=== PATIENT | male | born 1940 | race Caucasian/White ===

== ENCOUNTER → 2022-08-09 09:48 | Outpatient (CLI) | payer MEDICARE, SELFPAY ==
--- NOTE | ~2022-08-09 | XR_ITS ---
EXAM: XR knee RT 3V DATE: 08/09/2022 10:41 HISTORY: M25.561 - Pain in right knee . COMPARISON: None available. FINDINGS: Uncomplicated right knee total arthroplasty. Decreased mineralization. No fracture or disl ocation. No lytic or blastic lesion. Moderate quadriceps enthesopathy. Small volume joint fluid. No e rosion or periosteal change. Soft tissues within normal limits. IMPRESSION: No acute osseous finding in the right knee. No radiographic evidence of hardware-related complication. Reviewed, dictated and finalized at location K. ER HELPER IMPRESSION: No acute osseous finding in the right knee. No radiographic evidenc e of hardware-related complication.
== END ==
PROVIDERS: Visit Provider Orthopaedic Surgery
DX: M25.561 Pain in right knee (principal)
CPT/HCPCS: 73562

== ENCOUNTER 2022-10-18 09:35 | Outpatient (CLI) | payer MEDICARE, SELFPAY ==
[2022-10-18 11:10] LABS: Basophils Percent Auto 0.5 % (0.2-1.2); Eosinophils Absolute Auto 0.6 K/mm3 (0-0.3); Eosinophils Percent Auto 6.9 % (0-4.4); Hematocrit 27.3 % (42.0-52.0); Hemoglobin 8.8 g/dL (14.0-18.0); Immature Granulocyte Absolute 0.08 K/mm3 (0.00-0.031); Immature Granulocyte Percent A 0.9 % (0-0.5); Lymphocytes Absolute Auto 2.87 K/mm3 (0.9-3.2); Lymphocytes Percent Auto 32.9 % (18.3-44.2); Mean Corpuscular HGB Conc 32.2 g/dl (32-36); Mean Corpuscular Hemoglobin 31.3 pg (26-34); Mean Corpuscular Volume 97.2 fl (80-100); Mean Platelet Volume 8.3 fl (7.4-10.4); Monocytes Absolute Auto 0.5 K/mm3 (0.1-0.6); Monocytes Percent Auto 5.7 % (2.6-8.5); Neutrophils Absolute Auto 4.6 K/mm3 (1.3-6.7); Neutrophils Percent Auto 53.1 % (45.5-73.1); Platelet Count Result 157 k/mm3 (150-375); Red Blood Count 2.81 M/mm3 (4.6-6.20); Red Cell Distribution Width 14.8 % (11.5-14.5); White Blood Count 8.7 K/mm3 (4.5-10.0)
[2022-10-18 11:21] LABS: Urine Cotinine NEGATIVE
[2022-10-18 11:23] LABS: Albumin Level 4.1 g/dL (3.5-5.1); Estimated Glomerular Filt Rate 39; Glucose 104 mg/dL (65-110)
[2022-10-18 11:26] LABS: Hemoglobin A1C 5.4 % (<5.7)
[2022-10-18 11:30] LABS: Phenytoin Dilantin 24 ug/mL (10-20)
== END 2022-10-18 09:36 | disposition home or self-care (01) ==
LOC: ANHSURGERY 09:41
PROVIDERS: Anesthesiology; Visit Provider Orthopaedic Surgery
DX: M17.11 Unilateral primary osteoarthritis, right knee (principal); Z01.818 Encounter for other preprocedural examination
CPT/HCPCS: 80185; 80307; 82040; 82565; 82947; 83036; 85025; 87081

== ENCOUNTER 2023-03-16 09:42 | Outpatient (CLI) | payer MEDICARE, SELFPAY ==
[2023-03-16 10:14] LABS: Basophils Percent Auto 0.4 % (0.2-1.2); Eosinophils Absolute Auto 0.7 K/mm3 (0-0.3); Eosinophils Percent Auto 7.9 % (0-4.4); Hematocrit 33.1 % (42.0-52.0); Hemoglobin 10.5 g/dL (14.0-18.0); Immature Granulocyte Absolute 0.03 K/mm3 (0.00-0.031); Immature Granulocyte Percent A 0.3 % (0-0.5); Lymphocytes Absolute Auto 3.74 K/mm3 (0.9-3.2); Lymphocytes Percent Auto 41.2 % (18.3-44.2); Mean Corpuscular HGB Conc 31.7 g/dl (32-36); Mean Corpuscular Hemoglobin 31.5 pg (26-34); Mean Corpuscular Volume 99.4 fl (80-100); Mean Platelet Volume 8.6 fl (7.4-10.4); Monocytes Absolute Auto 0.6 K/mm3 (0.1-0.6); Monocytes Percent Auto 6.7 % (2.6-8.5); Neutrophils Absolute Auto 3.9 K/mm3 (1.3-6.7); Neutrophils Percent Auto 43.5 % (45.5-73.1); Platelet Count Result 181 k/mm3 (150-375); Red Blood Count 3.33 M/mm3 (4.6-6.20); Red Cell Distribution Width 14.3 % (11.5-14.5); White Blood Count 9.1 K/mm3 (4.5-10.0)
[2023-03-16 10:20] LABS: Urine Cotinine NEGATIVE
[2023-03-16 10:24] LABS: Partial Thromboplastin Time 32.9 SECONDS (22.3-36.8); Prothrombin Time 14.1 Seconds (11.1-14.7)
[2023-03-16 10:38] LABS: Albumin Level 3.9 g/dL (3.5-5.1); Estimated Glomerular Filt Rate 42; Glucose 101 mg/dL (65-110)
[2023-03-16 11:58] LABS: Phenytoin Dilantin 25 ug/mL (10-20)
[2023-03-16 12:47] LABS: Hemoglobin A1C 5.2 % (<5.7)
== END 2023-03-16 09:43 | disposition home or self-care (01) ==
LOC: ANHSURGERY 09:46
PROVIDERS: Anesthesiology; Visit Provider Orthopaedic Surgery
DX: Z01.810 Encounter for preprocedural cardiovascular examination (principal); M17.11 Unilateral primary osteoarthritis, right knee; N18.9 Chronic kidney disease, unspecified
CPT/HCPCS: 80185; 80307; 82040; 82565; 82947; 83036; 85025; 85610; 85730; 86850; 86900; 86901; 87081

== ENCOUNTER 2023-03-24 10:31 | Inpatient (IN) | payer MEDICARE, SELFPAY ==
[2022-10-18 09:49] VITALS: BMI 29.8
--- NOTE | 2022-10-18 10:22 | PC.NURSE ---
Report to the Outpatient Waiting Room, entrance under the green pavilion located off [facility], at time __0830 on date __11/11/22 . Planned Procedure Time: __1030 . Time changes happen often and if your time is changed the preop area will call you the afternoon before. - You and your visitor will be asked to self-screen and do not enter if you have any COVID symptoms. - Only one visitor is requested with a max of two and NO children visitors are allowed at this time. - The patient visitor may be requested to leave or wait in car when not with patient due to distancing restrictions. - A mask is optional within the hospital at this time. Patients may have clear liquids (water, carbonated beverages, clear teas, apple juice) until 3 hours prior to surgery with a maximum of 20 ounces. - No food from midnight until time of surgery - Infants may have breast milk until 4 hours before surgery, infant formula 6 hours prior to surgery. - Children will be allowed to drink immediately following surgery. If applicable, please bring a bottle or sippy cup to assist with drinking. Juice, water, soda, and popsicles are readily available. For infants on formula, please bring formula the day of surgery. Pacifiers are allowed. Take the following medications with a SIP of water the morning of surgery: ___AMLODIPINE,_GABAPENTIN,NIFEDIPINE,PHENOBARBITAL,PHENYTOIN, AND PROPRANOLOL DO NOT STOP ANY OF YOUR OTHER PRESCRIPTION MEDICATIONS PRIOR TO SURGERY ?EXCEPT THE FOLLOWING Medications to discontinue per physician ___ALL VITAMINS AND SUPPLEMENTS 3 DAYS PRE OP .LAST DOSE 11/08/22 TOTAL JOINT CLASS October AT 10 AM Please no make-up, nail kazakh, hairspray, perfume, deodorant, or body powder the day of surgery. No jewelry (including any body piercings) or valuables the day of surgery, leave them at home. Please take a shower or bath the night before, or the morning of, surgery with an antibacterial soap. Wear comfortable, loose fitting clothing. Children are encouraged to wear pajamas. - Jewelry must be removed prior to entering the operating room. Rings and piercings that are not removed may be cut off. - The hospital will not accept responsibility for valuables. - Please leave all valuables, including medications, at home the day of surgery. If you are going home after surgery, a licensed oil truck driver must drive you home. - NO public transportation without another adult if you receive anesthesia. - We recommend that an adult stay with you for 24 hours following discharge. - We also recommend that you do not drive, make important decision, drink alcoholic beverages, or take any drugs that were not prescribed by your health care provider for at least 24 hours after your discharge time. Follow any additional instructions given to you from your surgeon. If you or anyone in your household have experienced Covid symptoms in the past week, please notify your surgeon or the nurse liaison at the phone number below for possible testing. VERBAL AND WRITTEN instructions given to __PATIENT AND JAI and asked if any additional questions and then verbalized understanding. Patient advised to call surgeon office or pre surgery nurse liaison [phone] if any additional questions.
[2022-10-18 10:42] VITALS: BP 169/57; PULSE 54; RESP 18; TEMP 36.6; O2SAT 100
--- NOTE | 2023-03-11 10:33 | PC.NURSE ---
Report to the Outpatient Waiting Room, entrance under the green pavilion located off [facility], at time _0600 on date __03/24/23 . Planned Procedure Time: _0730 . Time changes happen often and if your time is changed the preop area will call you the afternoon before. - You and your visitor will be asked to self-screen and do not enter if you have any COVID symptoms. - A mask is optional within the hospital at this time. Patients may have clear liquids (water, carbonated beverages, clear teas, apple juice) until 3 hours prior to surgery with a maximum of 20 ounces. - No food from midnight until time of surgery - Infants may have breast milk until 4 hours before surgery, infant formula 6 hours prior to surgery. - Children will be allowed to drink immediately following surgery. If applicable, please bring a bottle or sippy cup to assist with drinking. Juice, water, soda, and popsicles are readily available. For infants on formula, please bring formula the day of surgery. Pacifiers are allowed. Take the following medications with a SIP of water the morning of surgery: ____AMLODIPINE,NIFEDIPINE,PHENOBARBITAL,PHENYTOIN,AND PROPRANOLOL DO NOT STOP ANY OF YOUR OTHER PRESCRIPTION MEDICATIONS PRIOR TO SURGERY ?EXCEPT THE FOLLOWING Medications to discontinue per physician ALL VITAMINS AND SUPPLEMENTS 3 DAYS PRE OP.LAST DOSE 03/21/23 TOTAL JOINT CLASS 03/16/23 AT 10 AM Please no make-up, nail tajik, hairspray, perfume, deodorant, or body powder the day of surgery. No jewelry (including any body piercings) or valuables the day of surgery, leave them at home. Please take a shower or bath the night before, or the morning of, surgery with an antibacterial soap. Wear comfortable, loose fitting clothing. Children are encouraged to wear pajamas. - Jewelry must be removed prior to entering the operating room. Rings and piercings that are not removed may be cut off. - The hospital will not accept responsibility for valuables. - Please leave all valuables, including medications, at home the day of surgery. If you are going home after surgery, a licensed frontload driver must drive you home. - NO public transportation without another adult if you receive anesthesia. - We recommend that an adult stay with you for 24 hours following discharge. - We also recommend that you do not drive, make important decision, drink alcoholic beverages, or take any drugs that were not prescribed by your health care provider for at least 24 hours after your discharge time. For Pediatric surgeries, we recommend two adults accompany the child home. Follow any additional instructions given to you from your surgeon. If you or anyone in your household have experienced Covid symptoms in the past week, please notify your surgeon or the nurse liaison at the phone number below for possible testing. Telephone instructions given to __PATIENTS JAI and asked if any additional questions and then verbalized understanding. Patient advised to call surgeon office or pre surgery nurse liaison [phone] if any additional questions.
[2023-03-11 11:02] VITALS: BMI 29.8
[2023-03-24] VITALS (14 sets, daily range): BP systolic 113–149; BP diastolic 48–62; PULSE 52–71; RESP 12–18; TEMP 36.2–36.7; O2SAT 98–100
--- NOTE | ~2023-03-24 | XR_ITS ---
EXAMINATION: [id number] DATE: 03/24/2023 09:21 CDT INDICATION: Right knee revision with patellar arthroplasty TECHNIQUE: 2 views right knee COMPARISON: 03/16/2023 FINDINGS: There is a revision of right total knee arthroplasty in expected position with patellar art hroplasty. Subcutaneous gas with fluid and air in the joint are consistent with recent surgery. No e vidence of periprosthetic fracture. IMPRESSION: 1. Recent revision of right total knee arthroplasty with patellar arthroplasty. Reviewed, dictated and finalized at location L. IMPRESSION: 1. Recent revision of right total knee arthroplasty with patellar arthroplasty .
[2023-03-24] MEDS: ACETAMINOPHEN 500 MG TABLET 1000 MG PO ×4 (06:30→21:58)
[2023-03-24] MEDS: LACTATED RINGERS 1,000 ML 30 ML IV CONT (06:30)
--- NOTE | 2023-03-24 06:55 | WPDANESEPPF ---
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,s/p total knee Patient Data Age: 82 Gender: M Height: 1.75 m Weight: 91.7 kg Last Vital Signs Temp 36.6 C 10/18/22 10:42 Pulse 54 L 10/18/22 10:42 Resp 18 10/18/22 10:42 BP 169/57 H 10/18/22 10:42 Pulse Ox 100 10/18/22 10:42 O2 Del Method Room Air 10/18/22 10:42 Allergies Allergy/AdvReac Type Severity Reaction Status Date / Time codeine Allergy Mild RENAL Verified 03/16/23 08:48 IMPAIRMENT NSAIDS (Non-Steroidal Allergy Other Verified 03/16/23 08:48 Anti-Inflamma Home Medications Medication Instructions Recorded Confirmed Type acetaminophen 650 mg 650 mg PO Q12H PRN Pain 10/18/22 03/16/23 History tablet,extended release (Tylenol Arthritis Pain) allopurinol 300 mg tablet 300 mg PO DAILY 10/18/22 03/16/23 History amlodipine 5 mg tablet 5 mg PO DAILY 10/18/22 03/16/23 History doxazosin 4 mg tablet 4 mg PO HS 10/18/22 03/16/23 History folic acid 800 mcg tablet 800 mcg PO DAILY 10/18/22 03/16/23 History gabapentin 300 mg capsule 300 mg PO QNOON 10/18/22 03/16/23 History hydrocodone 5 mg-acetaminophen 325 1 tablet PO PRN PRN Pain 10/18/22 03/16/23 History mg tablet irbesartan 300 1 tablet PO DAILY 10/18/22 03/16/23 History mg-hydrochlorothiazide 12.5 mg tablet iron 50 mg iron tablet 1 tablet PO DAILY 10/18/22 03/16/23 History omeprazole 40 mg capsule,delayed 40 mg PO PRN PRN Heartburn 10/18/22 03/16/23 History release phenobarbital 32.4 mg tablet 32.4 mg PO QID 10/18/22 03/16/23 History phenytoin sodium extended 100 mg 100 mg PO QID 10/18/22 03/16/23 History capsule propranolol 20 mg tablet 20 mg PO TID 10/18/22 03/16/23 History Patient hx anesthesia problems: none Family hx anesthesia problems: none Results Review: All pre-operative results and documents have been reviewed as part of the pre-operative evaluation. 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 Family History Family History Father Cancer Arthritis Mother Diabetes mellitus Social History Social History Smoking status: Never smoker Additional smoking assessment comments: DENIES ANY FORM OF TOBACCO USE Lack of Transportation: No Lack of Food: Never True Current Housing: I Have Housing Concerned About Future Housing: No Difficulty Paying Gas/Electric Bills: No Difficulty Paying for Meds: No Currently Unemployed: No Education: High School Diploma/GED Difficulty w/ Childcare or Family Care: No Living arrangements: with family Spiritual care concerns: No Anes - Eval Final PreProcedure Day of Procedure 03/24/23 06:55 Patient weight: overweight Heart: regular rate and rhythm Lungs: decreased breath sounds Airway: Mallampati scale class II Neurological: other (alert) Last oral intake: >/= 8 hours ASA classification: IV Emergent: no Anesthetic plan: proceed Anesthesia type and monitoring: general LMA and standard monitoring Results Review: All pre-operative results and documents have been reviewed as part of the pre-operative evaluation. Informed Consent: T
--- NOTE | 2023-03-24 07:19 | WPDHPUPDATE1 ---
History and Physical Update Update Date/Time: 03/24/23 07:19 History and Physical has been reviewed, including an updated exam of the patient. There are NO changes in the patient's condition. Risks, benefits, and alternatives have been discussed and questions answered. Patient agrees to proceed with procedure.
[2023-03-24] MEDS: TRANEXAMIC ACID 1,000MG/ISO100 1,000 MG/100 ML BAG 200 MG IVPB (07:20)
[2023-03-24] MEDS: ceFAZolin 2 GM/D5W 50 ML 2 GM/50 ML BAG IVPB ×2 (07:27→16:26)
[2023-03-24] MEDS: fentaNYL CITRATE INJ (*CRX) 100 MCG/2 ML VIAL 25 MCG IV PUSH ×2 (09:10→09:15)
--- NOTE | 2023-03-24 09:13 | P.OP_ITS ---
Procedure Note - Detailed Date of Procedure 03/24/23 Pre-op Diagnosis Patella femoral arthritis rt knee, s/p total knee Post-op Diagnosis Same Procedure Performed Patellar arthroplasty right knee, s/p total knee arthroplasty. Surgeon Temo Saenz MD Resourcing Consultant Michell Richards PA-C Anesthesia General Indications Severe anterior knee pain status post total arthroplasty. Likely precipitated by postoperative hip fracture and quadriceps weakness. Findings Severe patellar erosion. Spurring and scarring around the patella. Knee range of motion and balance were quite good. Lateral gap 2-3 mm and medial gap 1-2 mm. Excellent patellar tracking. No evidence of loosening. Description of Procedure Preoperative antibiotics were given. The patient was brought to the operating room. A general anesthetic was administered. The knee was prepped and draped in usual sterile fashion with a tourniquet high on the thigh. The limb was exsanguinated and the tourniquet inflated to 300 mmHg. The previous incision was opened longitudinally. Medial parapatellar exposure along the trivector approach was performed. Minimal dissection was required to expose the patella. There was extensive stephie articular scarring. This was released. Slight lateral release. The polyethylene appeared pristine. Knee balancing was very good. Due to the patient's frailty and low hemoglobin it was elected to not exchange the polyethylene liner. There was no significant synovitis or other inflammatory changes in the knee. No significant inflammatory fluid. The patella was resurfaced with the oscillating saw. Thickness was 26 mm and this was restored. The 41 mm asymmetric patellar button fit very nicely line to line. The lug holes were drilled. The knee was copiously irrigated with saline pulsatile lavage. The bone of the patella was prepared for cementing. Fast set cement was utilized and the patella was cemented. Anatomic perfect patellar tracking was again confirmed. The knee was closed in layers with interrupted 1. Vicryl suture, running 2 Stratafix suture, 2-0 and 3-0 Stratafix suture. Steri- Strips in the skin. Mepilex dressing. Sterile compressive bandage. Patient was extubated and brought to recovery room in stable condition. 50 mL of the pain relieving cocktail was injected in the periarticular tissues prior to closure. Implants Biotix patella medialized dome component 41 mm cemented ADX. Estimated Blood Loss -25.0 Urine Output -200.0 Drains No Pathology None sent Complications No immediate complications Condition Stable Disposition PACU [facility] Billing Surgery - Charge Forward: Surgery Billing
--- NOTE | 2023-03-24 10:04 | ADMGEN ---
This patient, Cy Poe, was admitted to Medical Room 340-01. Patient/family oriented to hospital policies and general routines including ID bracelet, bed and alarms, visiting hours, pain management, procedures, bathroom and other care routines, personal items, smoking policy, room service/diet, and visiting hours. Information on how to activate the Rapid Response Team has been discussed. Patient/Family are encouraged to report perceived risks to care and to ask questions if they do not understand what they are told or what they should do.
[2023-03-24] MEDS: allopurinoL 300 MG TABLET PO (11:03)
[2023-03-24] MEDS: SENNA/DOCUSATE SODIUM TABLET 2 TAB PO ×2 (11:03→16:32)
[2023-03-24] MEDS: ASPIRIN 81 MG ENTERIC TABLET PO ×2 (11:03→16:30)
[2023-03-24] MEDS: polyethylene glycoL 3350 17 GM POWD.PACK PO (11:04)
[2023-03-24] MEDS: PHENYTOIN SODIUM 100 MG EXTENDED RELEASE CAP PO ×3 (12:42→21:57)
[2023-03-24] MEDS: PROPRANOLOL HCL 20 MG TABLET PO ×2 (12:42→16:30)
[2023-03-24] MEDS: GABAPENTIN 300 MG CAPSULE PO (12:42)
[2023-03-24] MEDS: PHENobarbitaL (*CRX) 30 MG TABLET PO ×3 (13:47→21:57)
[2023-03-24] MEDS: oxyCODONE HCL (*CRX) 5 MG TAB IR PO (19:55)
[2023-03-24] MEDS: DOXAZOSIN MESYLATE 4 MG TABLET PO (21:57)
[2023-03-25] MEDS: oxyCODONE HCL (*CRX) 5 MG TAB IR PO (00:33)
[2023-03-25] MEDS: ceFAZolin 2 GM/D5W 50 ML 2 GM/50 ML BAG IVPB ×2 (00:34→08:59)
[2023-03-25 03:34] VITALS: BP 108/45; PULSE 63; RESP 16; TEMP 36.2; O2SAT 99
[2023-03-25] MEDS: ACETAMINOPHEN 500 MG TABLET 1000 MG PO ×2 (04:10→09:00)
[2023-03-25 05:50] LABS: Basophils Percent Auto 0.2 % (0.2-1.2); Eosinophils Absolute Auto 0.4 K/mm3 (0-0.3); Eosinophils Percent Auto 4.7 % (0-4.4); Hematocrit 28.3 % (42.0-52.0); Hemoglobin 8.9 g/dL (14.0-18.0); Immature Granulocyte Absolute 0.05 K/mm3 (0.00-0.031); Immature Granulocyte Percent A 0.6 % (0-0.5); Lymphocytes Absolute Auto 1.92 K/mm3 (0.9-3.2); Lymphocytes Percent Auto 23.5 % (18.3-44.2); Mean Corpuscular HGB Conc 31.4 g/dl (32-36); Mean Corpuscular Hemoglobin 31.9 pg (26-34); Mean Corpuscular Volume 101.4 fl (80-100); Mean Platelet Volume 8.9 fl (7.4-10.4); Monocytes Absolute Auto 0.7 K/mm3 (0.1-0.6); Monocytes Percent Auto 8.3 % (2.6-8.5); Neutrophils Absolute Auto 5.1 K/mm3 (1.3-6.7); Neutrophils Percent Auto 62.7 % (45.5-73.1); Platelet Count Result 150 k/mm3 (150-375); Red Blood Count 2.79 M/mm3 (4.6-6.20); Red Cell Distribution Width 14.4 % (11.5-14.5); White Blood Count 8.2 K/mm3 (4.5-10.0)
[2023-03-25 05:58] LABS: Anion Gap 4 mmol/L (8-16); Blood Urea Nitrogen 43 mg/dL (9-20); Calcium 8.2 mg/dL (8.4-10.2); Carbon Dioxide 22 mmol/L (22-30); Chloride 105 mmol/L (98-107); Estimated CRCL calculation 33 ml/min; Estimated Glomerular Filt Rate 42; Glucose 102 mg/dL (65-110); Potassium 5.4 mmol/L (3.4-5.0); Sodium 131 mmol/L (137-145)
[2023-03-25 07:34] VITALS: BP 129/53; PULSE 73; RESP 16; TEMP 36.7; O2SAT 98
--- NOTE | 2023-03-25 08:18 | PM.DS ---
DS: Admitting Diagnosis Discharge Date 03/25/23 Admitting Diagnosis Patella femoral arthritis rt knee, s/p total knee DS: Discharge Diagnosis Discharge Diagnosis (1) Status post revision of total knee replacement: Code(s): Z96.659 - Presence of unspecified artificial knee joint Status: Acute Plan Postop day 1: Right Patellar arthroplasty right knee. Status post total knee arthroplasty. Patient tolerated procedure well. No complications. Pain manageable with pain medication. No numbness or tingling. We had a lengthy discussion regarding postoperative wound care, limitations, expectations, and exercises. Patient shows good understanding. He has had initial physical therapy and is tolerating it well. DVT prophylaxis: 81 mg baby aspirin b.i.d. for 14 days. Pain medication: Percocet. Patient has followup appointment with Dr. Saenz in 3 weeks. DS: Summary Hospital Course Reason for hospitalization: Patellar arthroplasty. Hospital Course: Patient tolerated procedure well. Has had initial PT/OT. No complications. Pain well managed. Status at Discharge Functional status at discharge: uses cane/walker Overall status at discharge: patient is progressing back to baseline Time Spent with Patient Time attestation: Total time spent providing and/or coordinating discharge services: Exam Narrative: Normal weight 82 y/o Male. Resting comfortably in chair. No acute distress. A&O x3. Wearing compression socks bilaterally. Dressing intact with no drainage. Moderate swelling. Small area of ecchymosis. No erythema. No hematoma. Good early range of motion. Calf nontender. Neurologic status intact. No varicosities. Distal pulses palpable. DS: Data Data Completed and Pending Labs on day of discharge: Labs from last 24 hours 03/25/23 05:16 WBC 8.2 RBC 2.79 L Hgb 8.9 L Hct 28.3 L MCV 101.4 H MCH 31.9 MCHC 31.4 L RDW 14.4 Plt Count 150 MPV 8.9 Immature Gran % (Auto) 0.6 H Neut % (Auto) 62.7 Lymph % (Auto) 23.5 Miller % (Auto) 8.3 Eos % (Auto) 4.7 H Baso % (Auto) 0.2 Lymph # (Auto) 1.92 Miller # (Auto) 0.7 H Eos # (Auto) 0.4 H Baso # (Auto) 0.0 Abs Immat Gran (auto) 0.05 H Absolute Neuts (auto) 5.1 Absolute Nucleated RBC 0.0 Nucleated RBC % 0.0 Sodium 131 L Potassium 5.4 H Chloride 105 Carbon Dioxide 22 Anion Gap 4 L BUN 43 H Creatinine 1.60 H Estim Creat Clear Calc 33 Estimated GFR 42 L Glucose 102 Calcium 8.2 L Discharge Plan Discharge Patient Disposition: Home, Self-Care Discharge Instructions: See green instruction sheet Stand Alone Forms: General Discharge Instructions Follow-up/Referrals: Michell Richards PA [Physician Dog Show Judge] - Discharge Medications: New aspirin 81 mg tablet,delayed release (DR/EC) 81 mg PO BID 14 Days Qty: 28 0RF oxycodone-acetaminophen 5-325 mg tablet 1 - 2 tablet PO Q4-6H MDD 6 PRN (Reason: pain) Qty: 30 0RF Continued iron 50 mg iron Tablet 1 tablet PO DAILY irbesartan-hydrochlorothiazide 300-12.5 mg tablet 1 tablet PO DAILY allopurinol 300 mg tablet 300 mg PO DAILY folic acid 800 mcg tablet 800 mcg PO DAILY doxazosin 4 mg tablet 4 mg PO HS propranolol 20 mg tablet 20 mg PO TID gabapentin 300 mg capsule 300 mg PO QNOON amlodipine 5 mg tablet 5 mg PO DAILY omeprazole 40 mg capsule,delayed release(DR/EC) 40 mg PO PRN PRN (Reason: Heartburn) phenobarbital 32.4 mg tablet 32.4 mg PO QID phenytoin sodium extended 100 mg capsule 100 mg PO QID acetaminophen [Tylenol Arthritis Pain] 650 mg Tablet Extended Release 650 mg PO Q12H PRN (Reason: Pain) hydrocodone-acetaminophen 5-325 mg tablet 1 tablet PO PRN PRN (Reason: Pain)
[2023-03-25 09:00] VITALS: PULSE 73
[2023-03-25] MEDS: ASPIRIN 81 MG ENTERIC TABLET PO (09:00)
[2023-03-25] MEDS: allopurinoL 300 MG TABLET PO (09:00)
[2023-03-25] MEDS: IRBESARTAN 150 MG TABLET 300 MG PO (09:00)
[2023-03-25] MEDS: PHENobarbitaL (*CRX) 30 MG TABLET PO (09:00)
[2023-03-25] MEDS: SENNA/DOCUSATE SODIUM TABLET 2 TAB PO (09:00)
[2023-03-25] MEDS: PROPRANOLOL HCL 20 MG TABLET PO (09:00)
[2023-03-25] MEDS: FERROUS SULFATE DRIED 142 MG TABCR PO (09:00)
[2023-03-25] MEDS: PHENYTOIN SODIUM 100 MG EXTENDED RELEASE CAP PO (09:01)
[2023-03-25] MEDS: polyethylene glycoL 3350 17 GM POWD.PACK PO (09:01)
[2023-03-25] MEDS: hydroCHLOROthiazide 12.5 MG CAPSULE PO (09:01)
[2023-03-25] MEDS: amLODIPine BESYLATE 5 MG TABLET PO (09:01)
--- NOTE | 2023-03-25 09:46 | PC.NURSE ---
Addendum entered by Shayy Ricketts RN 03/25/23 10:59: Pt wheeled out by PCT. Pt IV removed tip intact and tolerated removal well. Pt and spouse educated on discharge instructions. Pt was monitored for any changes in status while here. Original Note: Pt discharging home with . is at bedside. Pt is A&O4 male who has participated and contributed in plan of care. Pt reports some discomfort after working with therapy, discomfort treated with tylenol. Pt tolerated therapy well. Pt denies any needs at this time. Will continue to monitor pt.
== END 2023-03-25 11:00 | disposition home or self-care (01) | DRG 468 ==
LOC: ANHSURGERY 03-29 17:48 → ANH3MED 04-21 09:13
PROVIDERS: Admitting Provider Orthopaedic Surgery; Visit Provider Physician Assistant Surgical
PROC: 0SWC0JC Revision of Synthetic Substitute in Right Knee Joint, Patellar Surface, Open Approach (ICD-10-PCS; CPT 27487; principal; 2023-03-24 07:30)
DX: T84.84XA Pain due to internal orthopedic prosthetic devices, implants and grafts, initial encounter (principal); D64.9 Anemia, unspecified; I10 Essential (primary) hypertension; R29.6 Repeated falls; Z96.653 Presence of artificial knee joint, bilateral; Z96.641 Presence of right artificial hip joint; Z93.3 Colostomy status
CPT/HCPCS: 36415; 73560; 80048; 85025; 97110; 97116; 97161; 97165; 97530; 97535; A9270; C1713; J0171; J0690; J1885; J2250; J2704; J2795; J3010; J7120

== ENCOUNTER 2023-04-15 04:27 | Emergency (ER) | payer MEDICARE, SELFPAY ==
[2023-04-15] VITALS (22 sets, daily range): BP systolic 133–179; BP diastolic 58–74; PULSE 62–90; RESP 10–19; TEMP 36.7; O2SAT 98–100
--- NOTE | ~2023-04-15 | XR_ITS ---
Right Knee Technique: AP, lateral, and sunrise views were obtained. Clinical History: Status post fall, wound dehiscence COMPARISON: 04/14/2023 Findings: No fracture or dislocation is seen. Right knee arthroplasty hardware remains in place. Sugg estion of soft tissue irregularity anterior aspect of the knee.. No joint effusion is seen. Impression: Possible soft tissue irregularity of the anterior aspect of the knee. Correlate for laceration or oth er soft tissue wound. No acute fracture or dislocation. Right knee arthroplasty hardware in place. Reviewed, dictated and finalized at location . Impression: Possible soft tissue irregularity of the anterior aspect of the knee. Correlate for laceration or other soft tissue wound. No acute fracture or dislocation. Right knee arthroplasty hardware in place.
[2023-04-15 04:56] LABS: Basophils Absolute Auto 0.1 K/mm3 (0.0-0.1); Basophils Percent Auto 0.6 % (0.2-1.2); Eosinophils Absolute Auto 0.7 K/mm3 (0-0.3); Eosinophils Percent Auto 7.9 % (0-4.4); Hematocrit 28.9 % (42.0-52.0); Immature Granulocyte Absolute 0.05 K/mm3 (0.00-0.031); Immature Granulocyte Percent A 0.6 % (0-0.5); Lymphocytes Percent Auto 26.8 % (18.3-44.2); Mean Corpuscular HGB Conc 31.1 g/dl (32-36); Mean Corpuscular Hemoglobin 31.8 pg (26-34); Mean Corpuscular Volume 102.1 fl (80-100); Mean Platelet Volume 8.3 fl (7.4-10.4); Monocytes Absolute Auto 0.7 K/mm3 (0.1-0.6); Monocytes Percent Auto 8.3 % (2.6-8.5); Neutrophils Absolute Auto 4.6 K/mm3 (1.3-6.7); Neutrophils Percent Auto 55.8 % (45.5-73.1); Platelet Count Result 228 k/mm3 (150-375); Red Blood Count 2.83 M/mm3 (4.6-6.20); Red Cell Distribution Width 14.9 % (11.5-14.5); White Blood Count 8.2 K/mm3 (4.5-10.0)
--- NOTE | 2023-04-15 05:09 | ED.GENADULT ---
HPI - General Adult General Chief complaint: Fall <Eyal Curry MD - Last Filed: 04/15/23 05:11> Stated complaint: KNEE INCISION RE-OPENED S/P FALL <Eyal Curry MD - Last Filed: 04/15/23 05:11> Time Seen by Provider: 04/15/23 04:42 <Eyal Curry MD - Last Filed: 04/15/23 05:11> History of Present Illness HPI narrative: Patient 82-year-old gentleman who presents emerged department with chief complaint of wound dehiscence. Patient reports that he is status post a Patellar arthroplasty right knee, s/p total knee arthroplasty. On 03/24/23. The patient reports that today he was going to the bathroom lost his balance tripped and fell landed on his right knee. The patient reports that the incision opened up and he has a large open wound on his knee. <Eyal Curry MD - Last Filed: 04/15/23 05:11> Related Data Home medications: Home Medications Medication Instructions Recorded Confirmed acetaminophen 650 mg 650 mg PO Q12H PRN Pain 10/18/22 04/14/23 tablet,extended release (Tylenol Arthritis Pain) allopurinol 300 mg tablet 300 mg PO DAILY 10/18/22 04/14/23 amlodipine 5 mg tablet 5 mg PO DAILY 10/18/22 04/14/23 doxazosin 4 mg tablet 4 mg PO HS 10/18/22 04/14/23 folic acid 800 mcg tablet 800 mcg PO DAILY 10/18/22 04/14/23 gabapentin 300 mg capsule 300 mg PO QNOON 10/18/22 04/14/23 hydrocodone 5 mg-acetaminophen 325 1 tablet PO PRN PRN Pain 10/18/22 04/14/23 mg tablet irbesartan 300 1 tablet PO DAILY 10/18/22 04/14/23 mg-hydrochlorothiazide 12.5 mg tablet iron 50 mg iron tablet 1 tablet PO DAILY 10/18/22 04/14/23 omeprazole 40 mg capsule,delayed 40 mg PO PRN PRN Heartburn 10/18/22 04/14/23 release phenobarbital 32.4 mg tablet 32.4 mg PO QID 10/18/22 04/14/23 phenytoin sodium extended 100 mg 100 mg PO QID 10/18/22 04/14/23 capsule propranolol 20 mg tablet 20 mg PO TID 10/18/22 04/14/23 <Eyal Curry MD - Last Filed: 04/15/23 05:11> Allergies/adverse reactions: Allergies Allergy/AdvReac Type Severity Reaction Status Date / Time codeine Allergy Mild RENAL Verified 04/15/23 04:35 IMPAIRMENT <Eyal Curry MD - Last Filed: 04/15/23 05:11> Review of Systems Review of Systems: A 10 system review of systems was completed on the patient and is negative except for what is stated in the HPI. Nursing and ancillary documentation was reviewed. 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 <Eyal Curry MD - Last Filed: 04/15/23 05:11> Family History Family History: Family History Father Cancer Arthritis Mother Diabetes mellitus <Eyal Curry MD - Last Filed: 04/15/23 05:11> Social History Social History: Social History Smoking status: Never smoker Additional smoking assessment comments: DENIES ANY FORM OF TOBACCO USE Alcohol intake: never Substance use: never Lack of Transportation: No Lack of Food: Never True Current Housing: I Have Housing Concerned About Future Housing: No Difficulty Paying Gas/Electric Bills: No Difficulty Paying for Meds: No Currently Unemployed: No Education: High School Diploma/GED Difficulty w/
[2023-04-15 05:11] LABS: Alanine Aminotransferase 27 U/L (6-50); Albumin Level 3.6 g/dL (3.5-5.1); Alkaline Phosphatase 422 U/L (38-126); Anion Gap 8 mmol/L (8-16); Aspartate Amino Transferase 33 U/L (17-59); Bilirubin,Total 0.4 mg/dL (0.2-1.3); Blood Urea Nitrogen 42 mg/dL (9-20); Calcium 8.8 mg/dL (8.4-10.2); Carbon Dioxide 23 mmol/L (22-30); Chloride 104 mmol/L (98-107); Estimated CRCL calculation 34 ml/min; Estimated Glomerular Filt Rate 42; Glucose 119 mg/dL (65-110); Potassium 4.6 mmol/L (3.4-5.0); Sodium 135 mmol/L (137-145)
[2023-04-15 05:12] LABS: Prothrombin Time 13.9 Seconds (11.1-14.7)
[2023-04-15 05:13] LABS: Partial Thromboplastin Time 37.2 SECONDS (22.3-36.8)
--- NOTE | 2023-04-15 06:23 | PC.NURSE ---
This RN called to room by family for shaking. Dr. Curry at bedside and ordered bedside glucose. Additional blankets given
[2023-04-15 06:27] LABS: Glucose Point of Care 112 mg/dl (65-105)
--- NOTE | 2023-04-15 07:20 | PC.NURSE ---
Addendum entered by Pina France RN 04/15/23 07:24: No excessive drainage noted to knee dressing. Original Note: Report received. Pt resting quietly per cart, trying to sleep. Lights dimmed for pt comfort. Reports pain 5/10, but declines any medication intervention at this time. Awaiting dispo.
[2023-04-15] MEDS: ceFAZolin 2 GM/D5W 50 ML 2 GM/50 ML BAG IVPB (07:32)
[2023-04-15] MEDS: LIDOCAINE HCL 1% LOCAL INJ 10 ML VIAL (08:50)
[2023-04-15] MEDS: oxyCODONE/ACETAMINOPHEN (*CRX) 5-325 MG TABLET 1 TABLET PO (10:31)
--- NOTE | 2023-04-15 10:35 | PM.CNOR ---
Assessment and Plan Assessment and plan (1) Dehiscence of operative wound: Qualifiers: Encounter type: initial encounter Qualified Code(s): T81.31XA - Disruption of external operation (surgical) wound, not elsewhere classified, initial encounter Code(s): T81.31XA - Disruption of external operation (surgical) wound, not elsewhere classified, initial encounter Status: Acute (2) Status post revision of total knee replacement: Code(s): Z96.659 - Presence of unspecified artificial knee joint Status: Acute Plan Dehiscence of the right knee arthroplasty wound after falling this morning. Surgery was March 24. He was using a wheeled walker which is not his norm. This slipped away from him and he went down onto the knee. Denies loss of consciousness or other injuries. Previously the wound was healing well and he was progressing appropriately. His postoperative course was complicated by another fall early in the postoperative. He suffered rib fractures at that time. Patient was seen in the emergency room. The wound was irrigated with 1000 mL. Betadine scrub. The deep fascia was sealed. There was no gross contamination or significant suture material. Local anesthetic with 10 mL 1% lidocaine placed. Primary wound closure performed with 2-0 nylon suture vertical mattress. The wound closed without undue tension to allow for some drainage. Xeroform gauze and a sterile bulky dressing with light compressive wrap was applied. IV antibiotics were given and home oral antibiotics. He will follow-up in the clinic in 2 weeks. Symptoms in sign of infection reviewed. Patient advised to use a standard walker without wheels. Fall prevention reviewed. 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 Family History Family History Father Cancer Arthritis Mother Diabetes mellitus Social History Social History Smoking status: Never smoker Additional smoking assessment comments: DENIES ANY FORM OF TOBACCO USE Alcohol intake: never Substance use: never Lack of Transportation: No Lack of Food: Never True Current Housing: I Have Housing Concerned About Future Housing: No Difficulty Paying Gas/Electric Bills: No Difficulty Paying for Meds: No Currently Unemployed: No Education: High School Diploma/GED Difficulty w/ Childcare or Family Care: No Living arrangements: with family Spiritual care concerns: No Meds Home Medications and Allergies Home Medications Medication Instructions Recorded Confirmed Type acetaminophen 650 mg 650 mg PO Q12H PRN Pain 10/18/22 04/14/23 History tablet,extended release (Tylenol Arthritis Pain) allopurinol 300 mg tablet 300 mg PO DAILY 10/18/22 04/14/23 History amlodipine 5 mg tablet 5 mg PO DAILY 10/18/22 04/14/23 History doxazosin 4 mg tablet 4 mg PO HS 10/18/22 04/14/23 History folic acid 800 mcg tablet 800 mcg PO DAILY 10/18/22 04/14/23 History gabapentin 300 mg capsule 300 mg PO QNOON 10/18/22 04/14/23 History hydrocodone 5 mg-acetaminophen 325 1 tablet PO PRN PRN Pain 10/18/22 04/14/23 History mg tablet irbesartan 300 1 tablet PO DAILY 10/18/22 04/14/23 History mg-hydrochlorothiazide 12.5 mg tablet iron 50 mg iron tablet 1 tablet PO DAILY 10/18/22 04/14/23 History om
--- NOTE | 2023-04-15 10:43 | PM.OP ---
Procedure Note - Brief Procedure Note - Brief Date of procedure: 04/15/23 KNEE INCISION RE-OPENED S/P FALL Post-op diagnosis: Same Procedure performed: Irrigation and debridement with primary wound closure right knee. Procedure performed at the emergency department. Surgeon: Temo Saenz MD Description of procedure: Patient was seen in the emergency room. The wound was irrigated with 1000 mL. Betadine scrub. The deep fascia was sealed. There was no gross contamination or significant suture material. Local anesthetic with 10 mL 1% lidocaine placed. Primary wound closure performed with 2-0 nylon suture vertical mattress. The wound closed without undue tension to allow for some drainage. Xeroform gauze and a sterile bulky dressing with light compressive wrap was applied. IV antibiotics were given and home oral antibiotics. Estimated blood loss (mL): 5 Pathology: None sent Complications: No immediate complications Condition: Stable Disposition: Same day
== END 2023-04-15 11:42 | disposition home or self-care (01) ==
PROVIDERS: Emergency Medicine; Emergency Provider Preventive Medicine Aerospace Medicine
DX: T81.31XA Disruption of external operation (surgical) wound, not elsewhere classified, initial encounter (principal); Z96.651 Presence of right artificial knee joint; Y83.8 Other surgical procedures as the cause of abnormal reaction of the patient, or of later complication, without mention of misadventure at the time of the procedure; W01.0XXA Fall on same level from slipping, tripping and stumbling without subsequent striking against object, initial encounter; I10 Essential (primary) hypertension; M10.9 Gout, unspecified; Z93.3 Colostomy status; Z79.899 Other long term (current) drug therapy; Z79.82 Long term (current) use of aspirin; Z79.891 Long term (current) use of opiate analgesic
CPT/HCPCS: 12001; 17999; 36415; 73562; 80053; 82948; 85025; 85610; 85730; 96365; 99284; A9270; J0690